=== PATIENT | male | born 1960 | race Caucasian/White ===

== ENCOUNTER 2017-07-15 08:43 | Inpatient (IN) | payer BC ==
[~2017-07-15 08:43] MED LIST: CEFAZOLIN 2 Gram 2 GM/50 ML BAG IVPB ONE; CELECOXIB 100 MG CAPSULE PO ONE; FAMOTIDINE 20MG TABLET PO ONE; MECLIZINE 25 MG TABLET PO ONE; METOCLOPRAMIDE 10 MG TABLET PO ONE; VANCOMYCIN HCL 1,000 MG in DEXTROSE 5 % IN WATER 250 ML IVPB ONE
[2017-07-15 09:48] LABS: ABO GROUP A; ANTIBODY SCREEN NEGATIVE (NEGATIVE); RH TYPE POSITIVE
[2017-07-15] MEDS ORDERED: BUPIVACAINE 0.5% W/EPI MPF 30 ML VIAL IVP ONE ×2 (11:29→16:25)
[2017-07-15] MEDS ORDERED: BISACODYL 10 MG SUPP RC PRN (13:36)
[2017-07-15] MEDS ORDERED: ACETAMINOPHEN W/ CODEINE 300MG/60MG TABLET PO PRN ×2 (13:36)
[2017-07-15] MEDS ORDERED: KETOROLAC 30 MG/ML VIAL IVP PRN ×2 (13:36)
[2017-07-15] MEDS ORDERED: MAGNESIUM HYDROXIDE 30 ML UDC PO PRN (13:36)
[2017-07-15] MEDS ORDERED: ONDANSETRON HCL IV 4 MG/2 ML VIAL IVP PRN (13:36)
[2017-07-15] MEDS ORDERED: AL HYDROX/MAG HYDROX 30ML UD PO PRN (13:36)
[2017-07-15] MEDS ORDERED: NALOXONE 0.4 MG/1 ML VIAL IVP PRN (13:36)
[2017-07-15] MEDS ORDERED: ACETAMINOPHEN 325 MG TAB PO PRN (13:36)
[2017-07-15] MEDS ORDERED: HYDROMORPHONE HCL 2 MG/ML VIAL IM PRN (13:36)
[2017-07-15] MEDS ORDERED: ZOLPIDEM TARTRATE 5 MG TABLET PO PRN (13:36)
[2017-07-15] MEDS ORDERED: DIPHENHYDRAMINE HCL IV 50 MG/ML VIAL IVP ONE (14:00)
[2017-07-15] MEDS ORDERED: MIDAZOLAM HCL 2MG/2ML VIAL IV ONE (14:00)
[2017-07-15] MEDS ORDERED: LIDOCAINE 2% MDV (20MG/ML) 20ML VIAL IV ONE (14:00)
[2017-07-15] MEDS ORDERED: FENTANYL PF 100MCG/2ML VIAL IV ONE (14:00)
[2017-07-15] MEDS ORDERED: HYDROMORPHONE HCL 2 MG/ML VIAL IV ONE (14:00)
[2017-07-15] MEDS ORDERED: ONDANSETRON HCL IV 4 MG/2 ML VIAL IVP ONE ×2 (14:00→19:00)
[2017-07-15] MEDS ORDERED: PROPOFOL 10 MG/ML VIAL IV ONE (14:00)
[2017-07-15] MEDS ORDERED: MEPIVACAINE HCL/PF (POLOCAINE) 2% 20MG/ML VIAL INJ ONE (14:00)
[2017-07-15] MEDS: DIPHENHYDRAMINE HCL 25 MG CAPSULE PO PRN ×2 (15:01→23:48)
--- NOTE | 2017-07-15 16:03 | Rehab Evaluation ---
Patient Information - Patient Information Diagnosis: DJD L Knee Ordered Treatment: PT Evaluate and Treat Status: Initial Evaluation Surgery: Yes (L TKA) Date of Surgery: 07/15/17 Past Medical/Surgical Hx: PAST MEDICAL/SURGICAL HISTORY Past Surgical History left open knee sx left knee scope shoulder right left elbow left hand sx FB PMH - Respiratory Hx Respiratory Disorders Yes Hx Bronchitis Yes PMH - Cardiovascular Hx Cardiovascular Disorders No Exercise Tolerance Good Comment: goes to gym everyday PMH - Neuro Hx Neurological Disorders Yes Comment: bells palsy 2 yrs ago PMH - GI Hx Gastrointestinal Disorders No PMH - Hx Genitourinary Disorders No PMH - Endocrine Hx Endocrine Disorders Yes Hx Thyroid Disease Yes: has hx of hyperthyroidism no treatment 26 yrs ago PMH - Musculoskeletal Hx Musculoskeletal Disorders Yes Hx Arthritis Yes PMH - Psych Hx Psychiatric Problems No PMH - Hematology/Oncology Hx Hematology/Oncology No Disorders Social History: Detail (The patient lives in a two story home with his spouse. The home has 2 steps to enter without a railing. He states that he will not be using the second story upon immediate discharge. The patient's restroom has a walk-in shower without a seat, but the patient says he may have access to one if needed. The patient's toilet is elevated. There are no grab bars around the toilet or in the shower. He has a 2WW that he will be using after surgery.) Precautions: Other (WBAT on L) - Time With Patient Total Time Spent With Patient (Min): 30 Treatment Procedures: Detail (PT Initial Evaluation) Subjective Information - Subjective Information Per Patient (The patient has no complaints of nausea or dizziness at the onset of initial evaluation. Had no complaints of pain.) Objective Data - Pain Pain Present: No Pain Intensity: 0 Pain Scale Used: Numeric (1 - 10) - Mental Status Patient Orientation: Oriented x3 - ROM Within normal limits (Was not formally assessed, but the patient showed functional ROM for activities assessed at initial evaluation. L Knee was limited as expected s/p L TKA) - Strength/Tone Within normal limits (Not formally assessed, but was within functional limits for activities completed at intial [facility]. L Knee showed some limitations as expected L TKA) - Bed Mobility Independent (The patient was able to transfer from supine to sit independently. The patient was independent with scooting to the middle of the bed.) - Transfers Independent (The patient was independent with sit to stand and stand to sit.) - Balance Balance Sitting: Good (No LOB while sitting at the bedside prior to ambulation) Balance Standing: Good (No LOB with static standing after transferring from sit to stand. No LOB with gait activities.) - Sensation Intact - Gait Detail (The patient used a 2WW and WBAT on L during ambulation. The patient was able to ambulate from his room to the PACU doors and back (about 180 feet total) . He required supervision only for ambulation activities. The patient's ability on stairs was not assessed at initial evaluation) Therapy Assessment - Therapy Assessment Detail (The patient was independent with bed mobility and transfers, but required supervision for gait activities. The patient's gait skills on stairs were not assessed at initial evaluation. The patient should progress well with inpatient physical therapy.) Patient Education - Patient Education Teaching Topic: Exercise/Activity (HEP was reviewed, which included: Quad sets, glute. sets, hamstring sets, ankle pumps, SLR, and heel slides. He was instructed to complete 10 reps, 1-2x/day) Response: Return Demonstration, Verbalize Understanding Teaching Method: Discussion, Demonstration Teaching Recipient: Patient Barriers To Learning: None Problem List - Problem List Physical Therapy Problem List: Detail (1) Decreased ROM and strength in L knee as expected s/p L TKA 2) Ability to ascend/descend stairs not assessed) Goals - Goals Physical Therapy Goals: 1) The patient will be able to ascend/descend 3 stairs with supervision, so he can safely enter/exit the home. 2) The patient will be independent with HEP to increase ROM and strength on L Knee and to increase functional ability in the home. Prognosis - Prognosis Good Plan - Plan Physical Therapy Plan: The patient will be seen 1-2x/day M-F for gait training and LE strengthening activities.
--- NOTE | 2017-07-15 16:20 | Rehab Evaluation ---
Patient Information - Patient Information Diagnosis: DJD L Knee Ordered Treatment: PT Evaluate and Treat Status: Initial Evaluation Surgery: Yes (L TKA) Date of Surgery: 07/15/17 Past Medical/Surgical Hx: PAST MEDICAL/SURGICAL HISTORY Past Surgical History left open knee sx left knee scope shoulder right left elbow left hand sx FB PMH - Respiratory Hx Respiratory Disorders Yes Hx Bronchitis Yes PMH - Cardiovascular Hx Cardiovascular Disorders No Exercise Tolerance Good Comment: goes to gym everyday PMH - Neuro Hx Neurological Disorders Yes Comment: bells palsy 2 yrs ago PMH - GI Hx Gastrointestinal Disorders No PMH - Hx Genitourinary Disorders No PMH - Endocrine Hx Endocrine Disorders Yes Hx Thyroid Disease Yes: has hx of hyperthyroidism no treatment 26 yrs ago PMH - Musculoskeletal Hx Musculoskeletal Disorders Yes Hx Arthritis Yes PMH - Psych Hx Psychiatric Problems No PMH - Hematology/Oncology Hx Hematology/Oncology No Disorders Social History: Detail (The patient lives in a two story home with his spouse. The home has 2 steps to enter without a railing. He states that he will not be using the second story upon immediate discharge. The patient's restroom has a walk-in shower without a seat, but the patient says he may have access to one if needed. The patient's toilet is elevated. There are no grab bars around the toilet or in the shower. He has a 2WW that he will be using after surgery.) Precautions: Other (WBAT on L) - Time With Patient Total Time Spent With Patient (Min): 30 Treatment Procedures: Detail (Initial Evaluation) Problem List - Problem List Physical Therapy Problem List: Detail (1) Decreased ROM and strength in L knee as expected s/p L TKA 2) Ability to ascend/descend stairs not assessed) Goals - Goals Physical Therapy Goals: 1) The patient will be able to ascend/descend 3 stairs with supervision, so he can safely enter/exit the home. 2) The patient will be independent with HEP to increase ROM and strength on L Knee and to increase functional ability in the home. Plan - Plan Physical Therapy Plan: The patient will be seen 1-2x/day M-F for gait training and LE strengthening activities.
[2017-07-15] MEDS ORDERED: TRANEXAMIC ACID 1,000 MG/10 ML ML IV ONE (16:25)
--- NOTE | 2017-07-15 16:34 | Operative Note ---
DATE: 07/15/17 PREOPERATIVE DIAGNOSIS: PROFOUND END-STAGE ARTHROSIS OF THE LEFT KNEE. POSTOPERATIVE DIAGNOSIS: PROFOUND END-STAGE ARTHROSIS OF THE LEFT KNEE. PROCEDURE: Cemented left total knee arthroplasty using Green [employer] Nephew Silvia II components with a size 8 Oxinium femur, a size 8 stemmed tibial base plate, a 9 mm lipped Highly CrossLink tibial insert, and a 35 mm all-plastic patella. STAFF SURGEON: MATTHEW BAHENA M.D. ANESTHESIA: SPINAL. PREPARATION: CHLORAPREP. INDIVIDUAL CONSIDERATIONS: NONE. PROCEDURE: The patient was taken to the Operating Room and placed supine on the operating table. He had a successful induction of a spinal anesthetic. His left lower extremity was prepped and draped in the usual fashion. The limb was elevated and the tourniquet was inflated to 250 mmHg. The patient had a midline approach to the knee. Sharp dissection was carried down through the skin and subcutaneous tissue. Small veins were coagulated with a Bovie. A medial arthrotomy was performed. The patella was everted and the knee was flexed. The patient's knee was basically destroyed and there were huge loose bodies within the knee almost stalactite loose bodies medially. The patella was almost fused to the tibia. The capsule was released from the medial proximal tibia. The fat pad was basically ossified and this was removed. Provisional meniscectomies were performed anteriorly and the ACL, which was remaining, was sacrificed. The initial femoral [place] pilot hole was then made freehand. The intramedullary femoral cutting jig was placed. It was cut in 7 degrees of valgus and adjusted for rotation and secured with pins for a 10 mm resection. The initial transverse cut was then made. Skin guide was placed in the anterior and posterior [place] pilot holes and it was found that a size 8 would be appropriate. The anterior and posterior cuts were made followed by chamfer cuts, huge osteophytes removed, and a size 8 trial was found to fit well. The tibia was brought forward and the remainder of the meniscal remnants were removed with a Bovie. Large loose bodies were removed posteriorly. The extra- articular tibial cutting jig was placed and it was cut neutral with a 3 degree AP slope. Care was taken to adjust for rotation and flexion using the extra- articular alignment guide and bony landmarks. It was set for a 9 mm resection, keyed off the high lateral side, and secured with pins. When cutting the tibia, care was taken to preserve the PCL insertion on the tibia. Large osteophytes were removed and I was able to easily fit a size 8 baseplate trial. It was adjusted for rotation and secured with pins. With a 9 mm trial and a femoral trial, there was excellent motion and stability. Ligamentous balance and rotation alignment were found to be normal. The femoral [place] pilot holes were impacted and a triflange tibial stamp was impacted, and these trial components were removed. The patient had a large patella with huge osteophytes, roughly 9 mm of bone was removed. Some of the osteophytes were 3 cm and these were also removed. I was easily able to fit a 35 patella and the three [place] pilot holes were drilled. The tourniquet was let down briefly to get bleeders posteriorly then placed back up again. The knee was then thoroughly irrigated out with pulsatile Betadine and saline to remove any visual or palpable debris. Bony surfaces were then dried. A size 8 stem tibial baseplate was cemented into place, followed by impaction of an 9 mm lipped tibial insert, followed by cementing in the size 8 Oxinium femur, followed by cementing in the 35 mm patella. Implant surfaces were compressed, excess cement was removed, and after the cement had set, there was excellent motion and stability. Ligamentous balance, rotation alignment, and patellofemoral tracking were normal. No lateral release was required. Tourniquet was let down. Hemostasis was obtained with a Bovie. After irrigation , I went ahead and infiltrated the periosteum, skin, and subcutaneous tissue with 30 mL of 0.50% Marcaine with Epinephrine. The capsule was then closed with a running #2 Quill, the subcutaneous was closed in layers with running 0 Quill, and the skin was closed with gita and a sterile Bulkee compressive Aquacel- type dressing was applied. Prior to placing the dressing, I did inject the knee with 30 mL of saline mixed with a gram of Tranexamic Acid. He did receive a gram of Tranexamic Acid preoperatively. The patient tolerated the procedure well. Needle and sponge counts were correct. Estimated blood loss was minimal and he was taken back to Recovery in good condition. There were no complications. cc: Dr. Donato Schmidt JOB NUMBER: [id number] MTDD
[2017-07-15] MEDS: HYDROCODONE/APAP 10/325 TABLET PO PRN ×2 (17:40→23:51)
[2017-07-15] MEDS: POTASSIUM CHLORIDE/D5-0.9%NACL 20 MEQ/1,000 ML BAG IV SCH ×2 (18:19→21:59)
[2017-07-15] MEDS: CEFAZOLIN 2 Gram 2 GM/50 ML BAG IVPB SCH (18:23)
[2017-07-15] MEDS: DOCUSATE SODIUM 100 MG CAPSULE PO SCH (21:19)
[2017-07-16] MEDS: CEFAZOLIN 2 Gram 2 GM/50 ML BAG IVPB SCH ×2 (02:22→10:37)
[2017-07-16] MEDS: POTASSIUM CHLORIDE/D5-0.9%NACL 20 MEQ/1,000 ML BAG IV SCH ×2 (02:23→05:31)
[2017-07-16] MEDS: HYDROCODONE/APAP 10/325 TABLET PO PRN ×3 (04:20→15:37)
[2017-07-16 06:43] LABS: HEMATOCRIT 37.5 % (42.0-52.0); HEMOGLOBIN 12.1 gm/dl (14.0-18.0)
[2017-07-16 06:59] LABS: BLOOD UREA NITROGEN 15 mg/dL (6-20); CREATININE 0.9 mg/dL (0.7-1.2); EST GLOMERULAR FILTRATION RATE > 60 mL/min; GLUCOSE,RANDOM 113 mg/dL (74-109)
[2017-07-16] MEDS ORDERED: FERROUS SULFATE 325 MG TAB PO SCH (10:00)
[2017-07-16] MEDS ORDERED: RIVAROXABAN 10 MG TABLET PO SCH (10:00)
[2017-07-16] MEDS: DOCUSATE SODIUM 100 MG CAPSULE PO SCH (10:35)
--- NOTE | 2017-07-16 11:28 | Rehab Evaluation ---
Patient Information - Patient Information Diagnosis: DJD L Knee Ordered Treatment: OT Evaluate and Treat Status: Initial Evaluation Surgery: Yes (L TKA) Date of Surgery: 07/15/17 Past Medical/Surgical Hx: PAST MEDICAL/SURGICAL HISTORY Past Surgical History left open knee sx left knee scope shoulder right left elbow left hand sx FB PMH - Respiratory Hx Respiratory Disorders Yes Hx Bronchitis Yes PMH - Cardiovascular Hx Cardiovascular Disorders No Exercise Tolerance Good Comment: goes to gym everyday PMH - Neuro Hx Neurological Disorders Yes Comment: bells palsy 2 yrs ago PMH - GI Hx Gastrointestinal Disorders No PMH - Hx Genitourinary Disorders No PMH - Endocrine Hx Endocrine Disorders Yes Hx Diabetes No Hx Thyroid Disease Yes: has hx of hyperthyroidism no treatment 26 yrs ago PMH - Musculoskeletal Hx Musculoskeletal Disorders Yes Hx Arthritis Yes PMH - Psych Hx Psychiatric Problems No PMH - Hematology/Oncology Hx Hematology/Oncology No Disorders Social History: Detail (The patient lives in a two story home with his spouse. The home has 2 steps to enter without a railing. He states that he will not be using the second story upon immediate discharge. The patient's restroom has a walk-in shower without a seat, but the patient says he may have access to one if needed. Patient has a hand held shower head. The patient's toilet is elevated. There are no grab bars around the toilet or in the shower. He has a 2WW that he will be using after surgery. Patient's spouse does not work and will be available to help with ADLs if needed.) Precautions: [place], Other (WBAT on L) - Time With Patient Total Time Spent With Patient (Min): 20 Treatment Procedures: Detail (OT eval LOW) Subjective Information - Subjective Information Per Patient (Patient expresses some concern about high pain levels in L knee. However pain is located more in upper thigh. Patient asking if bandage is too tight. Will have PT look at bandage also.) Objective Data - Pain Pain Present: Yes Pain Intensity: 5 (L upper thigh & knee) Pain Scale Used: Numeric (1 - 10) - Mental Status Patient Orientation: Oriented x3 - Visual Perception Appears within normal limits for therapeutic activities - ROM Within normal limits (BUE's) - Strength/Tone Within normal limits (BUE's) - Coordination Appears within normal limits for therapeutic activities - Bed Mobility Needs Assist (W/ LLE movement off bed secondary to pain.) - Transfers Independent (Sit<>stand t/f) - Balance Balance Sitting: Good Balance Standing: Good (Patient able to maintain balance in standing with forward lean to reach L foot to thread pants over foot after patient was unable to lift leg high enough to clear pants over heel of L foot in sitting EOB. No LOB) - Sensation Intact (Fermin digits of hands) - ADL's/IADL's Detail (Pt educated and demo'd understanding of modified LB drsg technique. Pt able to don and doff pants independently but using standing to pull pants over heel of L foot. No safety concerns seen during this. Pt will have assistance from spouse for sock/shoe don if needed but plans to wear slip on shoes until ROM in L knee improves. Discussed wrapping technique during showering to prevent water saturation and patient was able to verbalize understanding and has already purchased necessary supplies.) Therapy Assessment - Therapy Assessment Detail (Patient safe and independent with LB drsg. He will have assistance from spouse for any ADL needs. No further inpatient OT needed at this time.) Patient Education - Patient Education Teaching Topic: Other (Modified drsg technique) Barriers To Learning: None Problem List - Problem List Physical Therapy Problem List: Detail (1) Decreased ROM and strength in L knee as expected s/p L TKA 2) Ability to ascend/descend stairs not assessed) Goals - Goals Physical Therapy Goals: 1) The patient will be able to ascend/descend 3 stairs with supervision, so he can safely enter/exit the home. 2) The patient will be independent with HEP to increase ROM and strength on L Knee and to increase functional ability in the home. Prognosis - Prognosis Good Plan - Plan Physical Therapy Plan: The patient will be seen 1-2x/day M-F for gait training and LE strengthening activities. Occupational Therapy Plan: No further inpatient OT needed at this time.
--- NOTE | 2017-07-16 15:49 | Physical Therapy Tx Note ---
Physical Therapy Tx Note - Treatment Note Tolerated: Good Total Time Spent With Patient: 30 Physical Therapy Tx Note: Detail (Pt up in bathroom independently w/front- wheeled walker, getting ready for discharge. When asked if he had a walker at home, he replied that he had crutches, that he had used for prior knee surgery. Provided pt with crutches to try gait and instructed in proper fit for crutches at home. Instructed verbally, patient ambulated from bedside to stairwell, down/up three steps w/crutches w/verbal cues, returned to room ( about 75 feet), w/CGA/SBA, WBAT L LE. Reviewed home exercise program: ankle pumps, quad isometrics, hamstring isometrics, SLR, heel slides, glut sets. [employer] w/pt sitting in bedside chair, provided pt w/fresh water and call light placed in reach. Nrsg notified.) Physical Therapy Problem List: Detail (1) Decreased ROM and strength in L knee as expected s/p L TKA 2) Ability to ascend/descend stairs not assessed) Physical Therapy Goals: 1) The patient will be able to ascend/descend 3 stairs with supervision, so he can safely enter/exit the home - met. 2) The patient will be independent with HEP to increase ROM and strength on L Knee and to increase functional ability in the home - met. Prognosis: Good Physical Therapy Plan: The patient has passed all physical therapy skills; he is discharged from PT at this time.
--- NOTE | 2017-07-17 16:33 | Discharge Summary ---
DATE OF ADMISSION: 07/15/17 DATE OF DISCHARGE: 07/16/17 DATE OF SURGERY: 07/15/17 HISTORY: Mr. Solano is a delightful 57-year-old male who presents with profound end-stage arthrosis of his left knee. He was admitted after left total knee arthroplasty. Postoperatively, he did well. His hospital course was unremarkable. Discharge hemoglobin was 12.1 and did not require transfusion. DISCHARGE INSTRUCTIONS: The plan is to discharge him home in the care of his family. Home PT and Visiting Nurse have been arranged. We will be given [place] for pain and a total of five days of Xarelto followed by 30 days of a baby Aspirin daily. He will follow-up in my office in four weeks. Visiting Nurse will remove his sutures in four weeks. FINAL DIAGNOSIS/PRIMARY DIAGNOSIS: END-STAGE ARTHROSIS OF THE LEFT KNEE. SECONDARY DIAGNOSES: NONE. OPERATIONS AND PROCEDURES: CEMENTED LEFT TOTAL KNEE ARTHROPLASTY. DISCHARGE CONDITION: GOOD. cc: Dr. Donato Schmidt JOB NUMBER: [id number] MTDD
== END 2017-07-16 16:25 | disposition home or self-care (01) | DRG 470 ==
LOC: MEDSURG 08:43
PROVIDERS: ADMIT Orthopaedic Surgery; ATTEND Orthopaedic Surgery
PROC: 0SRD069 Replacement of Left Knee Joint with Oxidized Zirconium on Polyethylene Synthetic Substitute, Cemented, Open Approach (ICD-10-PCS; principal; 2017-07-15 11:00)
DX: M17.12 Unilateral primary osteoarthritis, left knee (principal)
CPT/HCPCS: 80048; 85014; 85018; 86850; 86900; 86901; 97116; 97165; 97530; J0670; J1200; J2405; J3480; J7060

== ENCOUNTER → 2019-06-01 | Day surgery (SDC) | payer BC ==
[~2019-06-01] MED LIST changes: +*PACU ONLY* KETAMINE HCL 10 MG/ML (20ML) VIAL IV ONE; +0.9 % SODIUM CHLORIDE 1000ML 1,000 ML IV ONE; +ACETAMINOPHEN 1,000 MG/100 ML BTL IVPB ONE; +BUPIVACAINE 0.25% MPF 30ML VIAL IVP ONE; +BUPIVACAINE 0.5% W/EPI MPF 30 ML VIAL SQ ONE; +BUPIVACAINE LIPOSOME/PF 133MG/10ML VIAL IV ONE; -CELECOXIB 100 MG CAPSULE PO ONE; -FAMOTIDINE 20MG TABLET PO ONE; +FENTANYL PF 100MCG/2ML VIAL IV ONE; +LIDOCAINE 2% MDV (20MG/ML) 20ML VIAL IV ONE; -MECLIZINE 25 MG TABLET PO ONE; +METHYLPREDNISOLONE 40MG/VIAL IU ONE; -METOCLOPRAMIDE 10 MG TABLET PO ONE; +MIDAZOLAM HCL 2MG/2ML VIAL IV ONE; +MORPHINE SULFATE 10MG/1ML **1ML VIAL IU ONE; +ONDANSETRON HCL IV 4 MG/2 ML VIAL IVP ONE; +PROPOFOL 10 MG/ML VIAL IV ONE; -VANCOMYCIN HCL 1,000 MG in DEXTROSE 5 % IN WATER 250 ML IVPB ONE
--- NOTE | 2019-06-04 06:20 | Operative Note ---
DATE OF SURGERY: 06/01/2019 PREOPERATIVE DIAGNOSIS: Severe impingement left shoulder with possible tear of the rotator cuff. POSTOPERATIVE DIAGNOSES: 1. Small chronic tear of the rotator cuff. 2. Anterior and superior glenohumeral labral tear. 3. Profound external impingement of left shoulder. 3. Arthrosis left distal clavicle. OPERATION: 1. Open repair of a chronically torn left rotator cuff tear. 2. Left shoulder arthroscopy with interarticular debridement. 3. Left shoulder open acromioplasty, CA ligament resection, subacromial bursectomy. 4. Left shoulder distal clavicle resection. STAFF SURGEON: Charlie Lacy MD ANESTHESIA: Block with sedation. PREPARATION: Chloraprep. INDIVIDUAL CONSIDERATIONS: None. PROCEDURE: The patient was taken to the operating room and had a successful induction of a shoulder block. He was given sedation and then prepped and draped in the usual fashion after being placed in a semi-seated beach chair position. The patient had an examination under anesthesia which showed no instability. The patient had a posterior portal identified for arthroscopy. Skin was infiltrated with 0.5% Marcaine with epinephrine prior. An 18-gauge spinal needle was placed in the joint, and the joint was inflated with normal saline with a 60-mL syringe. A stab wound was made, and a blunt-tipped trocar for the scope was placed in the joint. The joint was inflated with normal saline. An anterior accessory portal was then made just inferior to the intact long head of the biceps tendon in a retrograde fashion with a Wissinger pako, and the joint was irrigated out. The patient had a complex labral tear anterior and superiorly which was debrided with a shaver. The long head was intact. Glenohumeral joint was normal. No loose bodies were seen in the pouch or either gutter. Subscap tendon was normal. The patient had an obvious small tear of the rotator cuff. Shaver was introduced and the labral tear was debrided and the arthroscopy instruments were removed. The patient had an anterior approach to the subacromial space and distal clavicle. Skin was infiltrated with 0.5% Marcaine with epinephrine prior. Sharp dissection carried down through skin and subcutaneous tissues. Small veins were coagulated with a Bovie. An anterior deltoid interval was developed. Care was taken not to split the deltoid more than about 4 cm distal to the anterior tip of the acromion to prevent injury to the axillary nerve. Once in the subacromial space, there was a sanchez of fluid consistent with a tear. He had a huge anterior spur of the acromion and spurs at the AC joint. The deltoid was then taken subperiosteally off the anterior aspect of the acromion, over the top of the intact CA ligament, and off the anterior aspect of the degenerated distal clavicle. CA ligament was resected with a Bovie. Distal clavicle was resected with an oscillating saw taking just about a centimeter. An anterior acromioplasty was performed taking about a centimeter anteriorly and tapering towards posteromedially to include the spurs at the AC joint. The undersurface was then smoothed with a rasp. A very thickened bursa was debrided out. I now had a good look at the rotator cuff. There was about a 0.5 cm tear of the rotator cuff at the supraspinatus insertion. The surrounding areas looked macerated from the chronic impingement. I was able to freshen this to good bleeding tendon and then debrided the bone where it pulled off and then placed retention sutures into the end of the freshened tendon and satinder it into the small trough which I created with a amy. This gave essentially an anatomic repair. I put the shoulder through a full range of motion to ensure not further impingement. After irrigation, the deltoid was reattached to the remaining acromion with multiple interrupted #2 Vicryl going directly through the bony acromion. Anterior deltoid interval was then closed with running #1 Vicryl. Subcu was closed with 2-0 plus Vicryl and skin was closed with gita. Then 10 mL of 0.5% Marcaine with epinephrine along with 10 mg of morphine was injected into the subacromial space through a sterile 18-gauge needle. A sterile bulky compressive dressing was applied. The patient tolerated the procedure well. Needle and sponge counts were correct. Estimated blood loss was minimal. He was taken back to recovery in good condition. There were no complications. [place]
== END | disposition home or self-care (01) ==
LOC: SUR 07:10
PROVIDERS: ATTEND Orthopaedic Surgery
DX: M75.102 Unspecified rotator cuff tear or rupture of left shoulder, not specified as traumatic (principal); S43.432A Superior glenoid labrum lesion of left shoulder, initial encounter; M19.012 Primary osteoarthritis, left shoulder
CPT/HCPCS: 29822; 23412; 23130; 23120; 01610; 64418; J2405; J3010; J0690; C9290; J2270; 76942; J1030; J7030